=== PATIENT | male | born 1965 | race Caucasian/White ===

== ENCOUNTER 2025-10-10 20:50 | Inpatient (IN) | payer OTHER, SELFPAY ==
[~2025-10-10] VITALS: Ht 172.7 cm; Wt 103.8 kg
[2025-10-10 20:50] VITALS: BP 142/65; TEMP 98.2; O2SAT 96
[2025-10-10] MEDS ORDERED: MOM 30 ML SUSPENSION UDC PO PRN (22:05)
[2025-10-10] MEDS ORDERED: traZODone 50 MG TAB PO PRN (22:05)
[2025-10-10] MEDS: NS (Normal Saline) 0.9% 1,000 ML IV SCH (23:42)
[2025-10-10] MEDS: UNRESOLVED CLARIFICATION ENTRY XX SCH (23:49)
[2025-10-11] VITALS (9 sets, daily range): BP systolic 100–133; BP diastolic 51–62; TEMP 97.2–104.1; O2SAT 92–95
[2025-10-11] MEDS ORDERED: HYDR12.55 PO (00:21)
[2025-10-11] MEDS ORDERED: AMLO1TAB25 PO (00:21)
[2025-10-11] MEDS ORDERED: OLME20TA50 PO (00:21)
[2025-10-11] MEDS ORDERED: CENT1TAB PO (00:22)
[2025-10-11] MEDS ORDERED: MED REC IN PROGRESS XX SCH (00:25)
[2025-10-11] MEDS: cefTRIAXone SOD 2 GM in DEXTROSE 5% (D5W) ADV/MINI-BAG 50 ML IV SCH (00:32)
[2025-10-11] MEDS: ACETAMINOPHEN 325 MG TAB PO PRN (04:12)
[2025-10-11] MEDS: KETOROLAC 30 MG/ML 1 ML VIAL IV ONE (06:08)
[2025-10-11] MEDS: VANCOMYCIN HCL 2,000 MG, VIAL MATE ADAPTER 1 EACH in NS 500 ML IV ONE (06:08)
[2025-10-11 06:22] LABS: PLATELET COUNT, AUTOMATED 170 10^3/uL (150-450)
[2025-10-11 06:45] LABS: ALT/SGPT 24.0 U/L (7.0-40); AST/SGOT 26.0 U/L (<34); CALCIUM LEVEL 7.6 MG/DL (8.3-10.6); CARBON DIOXIDE LEVEL 27.0 MMOL/L (20-31); CHLORIDE LEVEL 107.0 MMOL/L (98-107); CREATININE FOR GFR 1.07 MG/DL (0.70-1.30); GLOMERULAR FILTRATION RATE 79.0 (>49); MAGNESIUM LEVEL 2.0 MG/DL (1.8-2.4); POTASSIUM SERUM 3.2 MMOL/L (3.5-5.1); SODIUM LEVEL 141.0 MMOL/L (136-145)
[2025-10-11] MEDS: PIPERACILLIN/TAZOBACTAM SOD 3.375 GM in DEXTROSE 5% (D5W) ADV/MINI-BAG 50 ML IV SCH (08:28)
[2025-10-11] MEDS: ENOXAPARIN 40 MG/0.4 ML SYRINGE (J1650 PER 10MG) SC SCH (08:28)
[2025-10-11] MEDS ORDERED: cefTRIAXone SOD 2 GM in DEXTROSE 5% (D5W) ADV/MINI-BAG 50 ML IV SCH (09:00)
[2025-10-11 09:22] LABS: ESTIMATED AVERAGE GLUCOSE 111.0 MG/DL (60-110)
[2025-10-11] MEDS ORDERED: HYDR50TAB PO (09:55)
[2025-10-11] MEDS ORDERED: OLME40TA PO (09:55)
[2025-10-11] MEDS ORDERED: NAPR-1405 PO (09:55)
[2025-10-11] MEDS ORDERED: HOME MED LIST COMPLETE! XX SCH (10:00)
[2025-10-11] MEDS: amLODIPine 10 MG TAB PO SCH (10:35)
[2025-10-11] MEDS: OLMESARTAN MEDOXOMIL 20 MG TAB PO SCH (10:35)
[2025-10-11] MEDS ORDERED: traMADol 50 MG TAB PO PRN (14:35)
[2025-10-11] MEDS: NICOTINE 14 MG/24 HR TRANSDERMAL TD SCH (15:17)
[2025-10-11] MEDS ORDERED: ISOVUE-370 76% 100 ML VIAL As Ordered ONE (15:44)
[2025-10-11] MEDS: POTASSIUM CHLORIDE 10MEQ SR TABLET PO SCH (16:31)
[2025-10-11] MEDS: VANCOMYCIN HCL 1,250 MG, VIAL MATE ADAPTER 1 EACH in NS 250 ML IV SCH (18:00)
[2025-10-11] MEDS ORDERED: VANCOMYCIN HCL 1,000 MG, VIAL MATE ADAPTER 1 EACH in NS 250 ML IV SCH (18:00)
[2025-10-12] VITALS (8 sets, daily range): BP systolic 100–120; BP diastolic 51–59; TEMP 98.5–102.8; O2SAT 91–93
[2025-10-12 06:05] LABS: PLATELET COUNT, AUTOMATED 171 10^3/uL (150-450)
[2025-10-12 06:36] LABS: ALT/SGPT 37.0 U/L (7.0-40); AST/SGOT 41.0 U/L (<34); CALCIUM LEVEL 7.6 MG/DL (8.3-10.6); CARBON DIOXIDE LEVEL 24.0 MMOL/L (20-31); CHLORIDE LEVEL 109.0 MMOL/L (98-107); CREATININE FOR GFR 1.23 MG/DL (0.70-1.30); GLOMERULAR FILTRATION RATE 66.8 (>49); POTASSIUM SERUM 3.3 MMOL/L (3.5-5.1); SODIUM LEVEL 142.0 MMOL/L (136-145)
[2025-10-12] MEDS: POTASSIUM CHLORIDE 10MEQ SR TABLET PO ONE (08:59)
[2025-10-12] MEDS: POTASSIUM CHLORIDE 10MEQ SR TABLET PO SCH (10:46)
[2025-10-12] MEDS: CLINDAMYCIN 600 MG in IV 1 EA IV SCH (10:46)
[2025-10-12] MEDS: CALCIUM CARBONATE 500 MG CHEW U/D PO PRN (20:11)
[2025-10-12] MEDS: SILVER SULFADIAZINE 1% CR 50 GM JAR TOP SCH (22:33)
[2025-10-13] VITALS (13 sets, daily range): BP systolic 97–119; BP diastolic 53–59; TEMP 97.8–102.3; O2SAT 91–95
[2025-10-13 07:49] LABS: PLATELET COUNT, AUTOMATED 218 10^3/uL (150-450)
[2025-10-13 08:00] LABS: ALT/SGPT 59.0 U/L (7.0-40); AST/SGOT 58.0 U/L (<34); CALCIUM LEVEL 7.7 MG/DL (8.3-10.6); CARBON DIOXIDE LEVEL 25.0 MMOL/L (20-31); CHLORIDE LEVEL 110.0 MMOL/L (98-107); CREATININE FOR GFR 1.33 MG/DL (0.70-1.30); GLOMERULAR FILTRATION RATE 60.8 (>49); POTASSIUM SERUM 3.8 MMOL/L (3.5-5.1); SODIUM LEVEL 143.0 MMOL/L (136-145)
[2025-10-13 10:05] LABS: C REACTIVE PROTEIN QUANTITATIV 13.25 MG/DL (<1.0)
[2025-10-13] MEDS: ONDANSETRON 4MG/2ML VIAL IV PRN (12:55)
[2025-10-13] MEDS: MEROPENEM 1 GM in IV 1 EA IV SCH (17:34)
[2025-10-14] VITALS (9 sets, daily range): BP systolic 133–145; BP diastolic 65–86; TEMP 99.9–102.2; O2SAT 87–93
[2025-10-14 07:00] LABS: PLATELET COUNT, AUTOMATED 283 10^3/uL (150-450)
[2025-10-14 07:40] LABS: ALT/SGPT 58.0 U/L (7.0-40); AST/SGOT 48.0 U/L (<34); CALCIUM LEVEL 7.7 MG/DL (8.3-10.6); CARBON DIOXIDE LEVEL 22.0 MMOL/L (20-31); CHLORIDE LEVEL 114.0 MMOL/L (98-107); CREATININE FOR GFR 1.28 MG/DL (0.70-1.30); GLOMERULAR FILTRATION RATE 63.7 (>49); POTASSIUM SERUM 4.1 MMOL/L (3.5-5.1); SODIUM LEVEL 145.0 MMOL/L (136-145)
[2025-10-14] MEDS: ceFAZolin SODIUM 2 GM in DEXTROSE 5% (D5W) ADV/MINI-BAG 50 ML IV SCH (23:01)
[2025-10-15 04:28] VITALS: BP 156/60; TEMP 100.1; O2SAT 92
[2025-10-15 07:13] LABS: BASO # 0.2 10^3/uL (0.0-0.2); BASO % 0.7 % (0.0-1.0); EOS # 0.4 10^3/uL (0.0-0.5); EOS % 2.2 % (0.0-3.0); LYMPH # 1.5 10^3/uL (1.5-5.0); LYMPH % 7.4 % (24.0-44.0); MONO # 1.2 10^3/uL (0.0-0.8); MONO % 5.8 % (2.0-8.0); NEUTROPHILS # 16.4 10^3/uL (1.5-8.5); NEUTROPHILS % 80.5 % (36.0-66.0); PLATELET COUNT, AUTOMATED 356 10^3/uL (150-450)
[2025-10-15 07:43] LABS: ALT/SGPT 52.0 U/L (7.0-40); AST/SGOT 43.0 U/L (<34); CALCIUM LEVEL 7.9 MG/DL (8.3-10.6); CARBON DIOXIDE LEVEL 24.0 MMOL/L (20-31); CHLORIDE LEVEL 116.0 MMOL/L (98-107); CREATININE FOR GFR 1.07 MG/DL (0.70-1.30); GLOMERULAR FILTRATION RATE 79.0 (>49); POTASSIUM SERUM 4.8 MMOL/L (3.5-5.1); SODIUM LEVEL 147.0 MMOL/L (136-145)
[2025-10-15] MEDS: hydroCHLOROthiazide 25 MG TAB PO SCH (08:55)
[2025-10-15] MEDS: amLODIPine 10 MG TAB PO SCH (08:55)
[2025-10-15 12:00] VITALS: BP 174/73; TEMP 99.9; O2SAT 91
[2025-10-15] MEDS: LOSARTAN 50 MG TABLET PO SCH (14:07)
[2025-10-15] MEDS: FUROSEMIDE 20 MG/2 ML VIAL IV ONE (14:07)
[2025-10-15] MEDS ORDERED: IPRATROPIUM 0.5 MG/ALBUTEROL 2.5 MG INH SOL UD 3 ML NEB PRN (15:50)
[2025-10-15 20:26] VITALS: BP 127/67; TEMP 100.9; O2SAT 93
[2025-10-15 23:33] VITALS: TEMP 99.6
[2025-10-16 03:31] VITALS: TEMP 99.3; O2SAT 93
[2025-10-16 03:48] VITALS: BP 154/69
[2025-10-16 05:53] LABS: BASO # 0.1 10^3/uL (0.0-0.2); BASO % 0.7 % (0.0-1.0); EOS # 0.5 10^3/uL (0.0-0.5); EOS % 2.5 % (0.0-3.0); LYMPH # 1.7 10^3/uL (1.5-5.0); LYMPH % 8.7 % (24.0-44.0); MONO # 1.0 10^3/uL (0.0-0.8); MONO % 5.0 % (2.0-8.0); NEUTROPHILS # 15.3 10^3/uL (1.5-8.5); NEUTROPHILS % 79.4 % (36.0-66.0); PLATELET COUNT, AUTOMATED 424 10^3/uL (150-450)
[2025-10-16 06:18] LABS: ALT/SGPT 43.0 U/L (7.0-40); AST/SGOT 39.0 U/L (<34); C REACTIVE PROTEIN QUANTITATIV 6.09 MG/DL (<1.0); CALCIUM LEVEL 8.1 MG/DL (8.3-10.6); CARBON DIOXIDE LEVEL 28.0 MMOL/L (20-31); CHLORIDE LEVEL 109.0 MMOL/L (98-107); CREATININE FOR GFR 1.12 MG/DL (0.70-1.30); GLOMERULAR FILTRATION RATE 74.7 (>49); POTASSIUM SERUM 4.0 MMOL/L (3.5-5.1); SODIUM LEVEL 147.0 MMOL/L (136-145)
[2025-10-16] MEDS ORDERED: SENNA 8.6 MG TAB PO PRN (10:40)
[2025-10-16] MEDS ORDERED: LACTULOSE 20 GM/30 ML SYRUP UDC PO PRN (10:40)
[2025-10-16] MEDS: FUROSEMIDE 20 MG/2 ML VIAL IV ONE (11:06)
[2025-10-16] MEDS: MIRALAX *UNIT DOSE* 17 GM PACKET PO PRN (11:06)
[2025-10-16 11:50] VITALS: BP 137/63; TEMP 99.3; O2SAT 94
[2025-10-16 20:13] VITALS: BP 145/67; TEMP 99.3; O2SAT 95
[2025-10-17 05:39] VITALS: BP 134/63; TEMP 98.6; O2SAT 91
[2025-10-17 06:30] LABS: BASO # 0.2 10^3/uL (0.0-0.2); BASO % 0.9 % (0.0-1.0); EOS # 0.5 10^3/uL (0.0-0.5); EOS % 2.7 % (0.0-3.0); LYMPH # 2.1 10^3/uL (1.5-5.0); LYMPH % 11.7 % (24.0-44.0); MONO # 0.9 10^3/uL (0.0-0.8); MONO % 5.3 % (2.0-8.0); NEUTROPHILS # 13.5 10^3/uL (1.5-8.5); NEUTROPHILS % 76.5 % (36.0-66.0); PLATELET COUNT, AUTOMATED 456 10^3/uL (150-450)
[2025-10-17 07:04] LABS: ALT/SGPT 32.0 U/L (7.0-40); AST/SGOT 34.0 U/L (<34); CALCIUM LEVEL 8.4 MG/DL (8.3-10.6); CARBON DIOXIDE LEVEL 30.0 MMOL/L (20-31); CHLORIDE LEVEL 105.0 MMOL/L (98-107); CREATININE FOR GFR 1.02 MG/DL (0.70-1.30); GLOMERULAR FILTRATION RATE 83.6 (>49); POTASSIUM SERUM 3.8 MMOL/L (3.5-5.1); SODIUM LEVEL 143.0 MMOL/L (136-145)
[2025-10-17] MEDS ORDERED: PROHANCE 279.3MG/ML 15ML VIAL As Ordered ONE (09:49)
[2025-10-17] MEDS ORDERED: PROHANCE 279.3MG/ML 5ML VIAL As Ordered ONE (09:49)
[2025-10-17 11:48] VITALS: BP 119/59; TEMP 99; O2SAT 97
[2025-10-17 13:46] LABS: C REACTIVE PROTEIN QUANTITATIV 4.54 MG/DL (<1.0)
[2025-10-17 19:44] VITALS: BP 137/62; TEMP 98.7; O2SAT 96
[2025-10-18 04:00] VITALS: BP 140/65; TEMP 98.3; O2SAT 94
[2025-10-18 06:18] LABS: BASO # 0.1 10^3/uL (0.0-0.2); BASO % 0.7 % (0.0-1.0); EOS # 0.5 10^3/uL (0.0-0.5); EOS % 3.1 % (0.0-3.0); LYMPH # 2.0 10^3/uL (1.5-5.0); LYMPH % 13.2 % (24.0-44.0); MONO # 1.0 10^3/uL (0.0-0.8); MONO % 6.2 % (2.0-8.0); NEUTROPHILS # 11.4 10^3/uL (1.5-8.5); NEUTROPHILS % 73.3 % (36.0-66.0); PLATELET COUNT, AUTOMATED 491 10^3/uL (150-450)
[2025-10-18 06:51] LABS: CALCIUM LEVEL 8.5 MG/DL (8.3-10.6); CARBON DIOXIDE LEVEL 31 MMOL/L (20-31); CHLORIDE LEVEL 103 MMOL/L (98-107); CREATININE FOR GFR 0.95 MG/DL (0.70-1.30); GLOMERULAR FILTRATION RATE > 90.0 (>49); POTASSIUM SERUM 4.0 MMOL/L (3.5-5.1); SODIUM LEVEL 142 MMOL/L (136-145)
[2025-10-18] MEDS: CEPHALEXIN 500 MG CAP PO SCH (08:40)
[2025-10-18 19:49] VITALS: BP 136/63; TEMP 100.2; O2SAT 96
[2025-10-19 04:10] VITALS: BP 125/60; TEMP 99; O2SAT 97
[2025-10-19 05:48] LABS: BASO # 0.1 10^3/uL (0.0-0.2); BASO % 0.8 % (0.0-1.0); EOS # 0.4 10^3/uL (0.0-0.5); EOS % 2.8 % (0.0-3.0); LYMPH # 1.9 10^3/uL (1.5-5.0); LYMPH % 13.3 % (24.0-44.0); MONO # 1.0 10^3/uL (0.0-0.8); MONO % 6.6 % (2.0-8.0); NEUTROPHILS # 10.8 10^3/uL (1.5-8.5); NEUTROPHILS % 74.2 % (36.0-66.0); PLATELET COUNT, AUTOMATED 479 10^3/uL (150-450)
[2025-10-19 12:00] VITALS: BP 118/58; TEMP 98.7; O2SAT 95
[2025-10-19] MEDS: CEPHALEXIN 500 MG CAP PO ONE (15:56)
[2025-10-19 20:15] VITALS: BP 135/63; TEMP 97.5; O2SAT 98
[2025-10-19] MEDS: CEPHALEXIN 500 MG CAP PO SCH (22:07)
[2025-10-20 03:27] VITALS: BP 125/60; TEMP 97.7; O2SAT 96
[2025-10-20 06:29] LABS: BASO # 0.1 10^3/uL (0.0-0.2); BASO % 0.8 % (0.0-1.0); EOS # 0.4 10^3/uL (0.0-0.5); EOS % 2.9 % (0.0-3.0); LYMPH # 1.9 10^3/uL (1.5-5.0); LYMPH % 14.0 % (24.0-44.0); MONO # 0.9 10^3/uL (0.0-0.8); MONO % 6.7 % (2.0-8.0); NEUTROPHILS # 10.2 10^3/uL (1.5-8.5); NEUTROPHILS % 73.8 % (36.0-66.0); PLATELET COUNT, AUTOMATED 469 10^3/uL (150-450)
[2025-10-20 06:41] LABS: C REACTIVE PROTEIN QUANTITATIV 2.48 MG/DL (<1.0); CALCIUM LEVEL 8.7 MG/DL (8.3-10.6); CARBON DIOXIDE LEVEL 30 MMOL/L (20-31); CHLORIDE LEVEL 103 MMOL/L (98-107); CREATININE FOR GFR 0.91 MG/DL (0.70-1.30); GLOMERULAR FILTRATION RATE > 90.0 (>49); POTASSIUM SERUM 4.2 MMOL/L (3.5-5.1); SODIUM LEVEL 141 MMOL/L (136-145)
[2025-10-20 08:51] VITALS: BP 114/54
[2025-10-20] MEDS ORDERED: CEPH500C PO (09:16)
[2025-10-20] MEDS ORDERED: RISATAB3 PO (09:16)
== END 2025-10-20 13:01 | disposition home health service (06) | DRG 720 ==
LOC: M MSPAV 20:50
PROVIDERS: ADMIT Student in an Organized Health Care Education/Training Program; ATTEND Student in an Organized Health Care Education/Training Program
DX: A41.9 Sepsis, unspecified organism (principal); I10 Essential (primary) hypertension; L03.116 Cellulitis of left lower limb; E87.6 Hypokalemia; R73.9 Hyperglycemia, unspecified; E66.9 Obesity, unspecified; Z68.34 Body mass index [BMI] 34.0-34.9, adult; Z72.0 Tobacco use; R06.02 Shortness of breath; R06.2 Wheezing; B95.0 Streptococcus, group A, as the cause of diseases classified elsewhere

== ENCOUNTER → 2025-10-10 | Outpatient (REF) ==
[~2025-10-10] MED LIST: AMLO1TAB25 PO; CENT1TAB PO; HYDR12.55 PO; HYDR50TAB PO; NAPR-1405 PO; OLME20TA50 PO; OLME40TA PO
== END ==
LOC: M LAB REF 18:51
DX: L03.115 Cellulitis of right lower limb (principal)